=== PATIENT | female | born 1990 | race Caucasian/White ===

== ENCOUNTER 2017-09-09 03:42 | Emergency (ER) | payer MEDICAID ==
[2017-09-09] MEDS ORDERED: IBUPROFEN 600 MG TABLET PO ONE (04:02)
[2017-09-09] MEDS ORDERED: AZITHROMYCIN 500 MG TABLET PO ONE (04:02)
--- NOTE | 2017-09-09 04:03 | Emergency Department Record ---
History of Present Illness - General Chief complaint: ENT Stated complaint: RIGHT EAR PAIN/COUGH Time Seen by Provider: 09/09/17 03:56 Source: Patient Mode of Arrival: Ambulatory Limitations: No limitations - History of Present Illness Initial comments: The patient is here due to a 5 day hx of a cough with R ear pain. Additionally the cough is productive of colored sputum. She denies any fever, or SOB but states she does have some CP ONLY when coughing. There has been no AP, WEISS, ST or nasal discharge. MD complaint: Ear pain Onset/Timin -: Days(s) Location: R ear Severity: Moderate Severity scale (1-10): 8 Quality: Sharp, Stabbing Consistency: Constant Improves with: None Worsens with: None Context- Ear: Recent illness Associated Symptoms: Cough, Hearing loss, Tinnitus - Related Data Home Medications Medication Instructions Recorded Confirmed Last Taken Ranitidine HCl 150 mg PO BID 09/09/17 09/09/17 09/08/17 Previous Rx's Medication Instructions Recorded Albuterol Sulfate [Proair Hfa] 2 puff IH QID PRN #1 inhaler 09/09/17 Azithromycin [Zithromax] 250 mg PO ASDIR #4 tab 09/09/17 Benzonatate [Tessalon Perle] 100 mg PO TID #15 capsule 09/09/17 Allergies Allergy/AdvReac Type Severity Reaction Status Date / Time penicillin Allergy Intermediate HIVES Verified 01/14/17 12:25 Travel Screening - Travel/Exposure Within Last 30 Days Have you traveled within the last 30 days?: No - Travel Symptoms Symptom Screening: None Review of Systems Constitutional: Denies: Chills, Fever Eyes: Denies: Eye discharge ENT: Reports: Congestion Respiratory: Reports: Cough. Denies: Dyspnea Past Medical History - SOCIAL HISTORY Smoking Status: Former smoker Alcohol Use: None Drug Use: None - RESPIRATORY Hx Respiratory Disorders: No - CARDIOVASCULAR Hx Cardio Disorders: No - NEURO Hx Neuro Disorders: No - GI Hx GI Disorders: Yes Comment:: Gastritis - Hx Genitourinary Disorders: No - ENDOCRINE Hx Endocrine Disorders: No - MUSCULOSKELETAL Hx Musculoskeletal Disorders: No - PSYCH Hx Psych Problems: Yes Hx Anxiety: Yes Hx Depression: Yes - HEMATOLOGY/ONCOLOGY Hx Hematology/Oncology Disorders: Yes Hx Anemia: Yes Hx Blood Transfusions: No Family Medical History Any Significant Family History?: Yes Hx Alcohol Use: Father Hx Anxiety: Father, Mother Hx Depression: Father, Mother Hx HTN: Mother Hx Liver Disease: Father Physical Exam - General General Appearance: Alert, Oriented x3, Cooperative, No acute distress - Head Head exam: Atraumatic, Normocephalic, Normal inspection - Eye Eye exam: Normal appearance, PERRL - ENT ENT exam: Normal exam, Mucous membranes moist, Normal external ear exam, Normal orophraynx. negative: TM's normal bilaterally (The R TM is mildly erythematous with a mild effusion and possibly with bullae present.) Throat exam: Normal inspection. negative: Tonsillar erythema, Tonsillar exudate - Neck Neck exam: Normal inspection, Full ROM. negative: Lymphadenopathy, Meningismus , Tenderness - Respiratory Respiratory exam: Normal lung sounds bilaterally, Chest wall tenderness (There is very reproducible anterior chest wall tenderness which reproduces the patient 's pain 100%.). negative: Respiratory distress - Cardiovascular Cardiovascular Exam: Regular rate, Normal rhythm, Normal heart sounds - GI/Abdominal GI/Abdominal exam: Soft, Normal bowel sounds. negative: Tenderness - Extremities Extremities exam: Normal inspection, Full ROM, Normal capillary refill. negative: Tenderness Image of Full Body: 1 - Area of pain with coughing and tenderness. - Neurological Neurological exam: Alert. negative: Motor sensory deficit Course Vital Signs 09/09/17 03:45 Temperature 97.9 F Pulse Rate 72 Respiratory 20 Rate Blood Pressure 119/81 Pulse Ox 100 - Reevaluation(s) Reevaluation #1: It does appear the patient has a significant URI so we will treat her with an oral Abx, inhaller, and pain medicines. 09/09/17 04:09 Medical Decision Making - Data Complexity MDM Data: EKG Ordered and/or Reviewed - EKG Data -: EKG Interpreted by Me EKG: No Acute Changes, Normal EKG Disposition Disposition: Discharge Clinical Impression: Upper respiratory infection, acute Disposition: Home, Self-Care Condition: (1) Good Instructions: Upper Respiratory Infection (ED) Additional Instructions: Please take the Abx along with the inhaller and Tessalon for the cough. Please use Motrin or Tylenol for pain. Please see your PCP for recheck in 2-3 days if not better. Return to the ER for any increased cough, fever, any trouble breathing or pain. Prescriptions: Albuterol Sulfate [Proair Hfa] 2 puff IH QID PRN #1 inhaler PRN Reason: Cough And Difficulty Breathing Azithromycin [Zithromax] 250 mg PO ASDIR #4 tab Benzonatate [Tessalon Perle] 100 mg PO TID #15 capsule Forms: Patient Portal Access Quality - Quality Measures Quality Measures: N/A - Blood Pressure Screening View Details: Yes Does Patient Have Any of the Following: No Blood Pressure Classification: Pre-Hypertensive BP Reading Systolic Measurement: 119 Diastolic Measurement: 81 Screening for High Blood Pressure: < Pre-Hypertensive BP, F/U Documented > [ [id number]] Pre-Hypertensive Follow-up Interventions: Referral to alternative/primary care provider.
== END 2017-09-09 04:29 | disposition home or self-care (01) ==
LOC: ER 03:42
DX: J06.9 Acute upper respiratory infection, unspecified (principal); H92.01 Otalgia, right ear; R07.89 Other chest pain; R05 Cough; Z87.891 Personal history of nicotine dependence
CPT/HCPCS: 93005; 93010; 99283